=== PATIENT | female | born 1965 | race Caucasian/White ===

== ENCOUNTER 2019-11-22 16:34 | Outpatient (CLI) | payer BC, SELFPAY ==
--- NOTE | ~2019-11-22 | XR_ITS ---
EXAMINATION: XR chest 2V DATE: 11/22/2019 16:54 INDICATION: Weaning for tuberculosis. Rheumatoid arthritis. TECHNIQUE: PA and lateral views of the chest were obtained. COMPARISON: None FINDINGS: The lungs are clear with no focal airspace opacities, pulmonary edema, pleural effusion or pneumothor ax. The cardiomediastinal silhouette is normal. Visualized bones and soft tissues are unremarkable. IMPRESSION: 1. No acute cardiopulmonary disease. Reviewed, dictated and finalized at location A. [employer] TECH[employer]ICIAN
== END 2019-11-22 16:35 | disposition home or self-care (01) ==
LOC: ANHLAB 16:35
PROVIDERS: Visit Provider Internal Medicine
DX: M05.79 Rheumatoid arthritis with rheumatoid factor of multiple sites without organ or systems involvement (principal)
CPT/HCPCS: 36415; 71046; 86480